=== PATIENT | male | born 1930 | race Caucasian/White ===

== ENCOUNTER → 2016-12-22 | Outpatient (CLI) | payer MEDICARE, OTHER ==
[~2016-12-22] MED LIST: ALTACE10 MG PO; ALTACE5 M1 PO; ASPIRIN81 M1 PO; BETIMOL5 ML OD; DIOVAN320 MG PO; MOVE FREE PO; PERCOCET5/325 PO; PHENERGAN25 MG PO; [UNRECOGNIZED DRUG - OTHER] PO
== END | disposition home or self-care (01) ==
LOC: CECH 13:35
DX: R06.00 Dyspnea, unspecified (principal); J44.9 Chronic obstructive pulmonary disease, unspecified
CPT/HCPCS: 93306

== ENCOUNTER → 2016-12-25 | Outpatient (CLI) | payer MEDICARE, OTHER ==
--- NOTE | ~2016-12-25 | NM69 ---
[facility] A Service of [facility] & [facility] RADIOLOGY TEXT RESULTS PATIENT: SHAHIDA CASTELLON LOCATION: [facility] : 32 UNIT #: [id number] AGE: [address]: Boom Dugan MD SEX: M ORDER DR: [id number] [facility] [address] [place], [place] [address] [id number] O MR#: [id number] Acc #: [id number] NAME: SHAHIDA CASTELLON : 1930 SEX: M STUDY DATE/TIME: 12/25/2016 7:32 UNIT: [facility] ROOM: STUDY DESCRIPTION: NM Pulm Vent and Perf Attending Physician: Boom Dugan M.D. Referring Physician: Boom Dugan M.D. Ordering Physician: Boom Dugan M.D. Primary Care Physician: Norman River Jr., M.D. MEDICAL IMAGING REPORT This report is preliminary unless electronic signature is present EXAM Nuclear medicine pulmonary ventilation-perfusion scan. COMPARISON CT chest dated October 09, 2016, as well as 2 views of the chest on December 25, 2016. INDICATION 86-year-old male with COPD. Patient has a history of left upper lobectomy for lung cancer in 2010 and has had worsening dyspnea since that time, especially with exertion. Patient reports that the dyspnea did start prior to 2010 by approximately a couple years but became much worse after lobectomy. Patient has a history of COPD and did stop smoking in 1982. Additional history also includes colon cancer. FINDINGS Approximately 33.2 mCi of technetium 99m DTPA was administered in aerosolized form for the ventilation portion of the exam. 6 mCi of technetium 99m MAA were administered intravenously for the perfusion portion of the exam. There is diminished ventilation to the right upper lobe and in the superior segment of the left lower lobe in this patient with left upper lobectomy. Overall, there is patchy ventilation throughout both lungs consistent with COPD. There are no ventilation-perfusion mismatches of pulmonary embolus. There are patchy perfusion defects which match the ventilation defects, primarily seen in the superior chest bilaterally. Oral contamination is noted in the form of activity in the stomach. IMPRESSION Very low probability for pulmonary embolus. Findings in keeping with left upper lobectomy and COPD. [facility] A Service of [facility] RADIOLOGY TEXT RESULTS PATIENT: SHAHIDA CASTELLON LOCATION: [facility] : 32 UNIT #: [id number] AGE: [address]: Boom Dugan MD SEX: M ORDER DR: Dictated by... Gaurang Luciano M.D. THIS IS AN ELECTRONICALLY VERIFIED REPORT Gaurang Luciano M.D. at 12/27/2016 10:57 AM GENESIS/faith TD: 12/25/2016 10:35 JOB #: [id number] MEDICAL IMAGING REPORT Page 1 of 1 COPY
--- NOTE | ~2016-12-25 | CR63 ---
[facility] A Service of [facility] & [facility] RADIOLOGY TEXT RESULTS PATIENT: SHAHIDA CASTELLON LOCATION: [facility] : 32 UNIT #: [id number] AGE: [address]: Boom Dugan MD SEX: M ORDER DR: [id number] [facility] [address] [place], [place] [address] [id number] O MR#: [id number] Acc #: [id number] NAME: SHAHIDA CASTELLON : 1930 SEX: M STUDY DATE/TIME: 12/25/2016 7:02 UNIT: [facility] ROOM: STUDY DESCRIPTION: CR Chest 2 View Attending Physician: Boom Dugan M.D. Referring Physician: Boom Dugan M.D. Ordering Physician: Boom Dugan M.D. Primary Care Physician: Norman River Jr., M.D. MEDICAL IMAGING REPORT This report is preliminary unless electronic signature is present EXAM PA and lateral chest dated 12/25/2016 COMPARISON 10/07/2014 HISTORY Shortness of breath dating back to 2010. History of prior lung and colon cancer. FINDINGS An AP portable view is obtained. Cardiac size in the patient is stable. Lungs show evidence of extensive chronic lung disease. No acute infiltrates are identified. Surgical clips are identified in the epigastrium. CONCLUSION COPD. No acute process identified. Dictated by... Norman Maurer M.D. THIS IS AN ELECTRONICALLY VERIFIED REPORT Norman Maurer M.D. at 12/25/2016 5:02 PM Irvin TD: 12/25/2016 09:41 JOB #: [id number] MEDICAL IMAGING REPORT Page 1 of 1 COPY
== END | disposition home or self-care (01) ==
LOC: CNUC 06:27
DX: J44.9 Chronic obstructive pulmonary disease, unspecified (principal); R06.00 Dyspnea, unspecified
CPT/HCPCS: 71020; 78582; 94060; 94726; 94729; A9540; A9567